=== PATIENT | female | born 1985 | race American Indian/Alaskan Native ===

== ENCOUNTER 2016-04-24 10:57 | Emergency (ER) | payer MEDICAID, OTHER ==
[2016-04-24 11:51] VITALS: BP 114/76
--- NOTE | 2016-04-24 12:32 | Emergency Department Report ---
- General Chief Complaint: Upper Respiratory Infection Stated Complaint: CHEST PAIN/HURTS WHEN COUGH/BODY ACHE Time Seen by Provider: 04/24/16 12:27 Source: patient Mode of arrival: Ambulatory Limitations: No Limitations - History of Present Illness MD Complaint: fever, cough, rhinorrhea, nasal congestion -: Gradual, days(s) Severity: severe Severity scale (0 -10): 7 Quality: sharp Consistency: constant Improves With: nothing Associated Symptoms: denies other symptoms, fever, chills, myalgias, cough. denies: stiff neck - Related Data Previous Rx's Medication Instructions Recorded Last Taken Type Azithromycin [Zithromax Z-KATHRYN] 250 mg PO QDAY #6 tablet 04/24/16 Unknown Rx Promethazine /Codeine 5 ml PO Q6H PRN #60 udc 04/24/16 Unknown Rx [Phenergan/Codeine 6.25-10 mg/5Ml] predniSONE [Deltasone] 50 mg PO QDAY #5 tablet 04/24/16 Unknown Rx Allergies Allergy/AdvReac Type Severity Reaction Status Date / Time No Known Allergies Allergy Verified 04/24/16 11:51 ED Review of Systems ROS: Stated complaint: CHEST PAIN/HURTS WHEN COUGH/BODY ACHE Other details as noted in HPI Constitutional: fever, malaise. denies: chills Eyes: denies: eye pain, eye discharge, vision change ENT: denies: ear pain, throat pain Respiratory: cough. denies: orthopnea, shortness of breath, SOB with exertion, SOB at rest, stridor, wheezing Cardiovascular: denies: chest pain, palpitations Endocrine: no symptoms reported Gastrointestinal: denies: abdominal pain, nausea, diarrhea Genitourinary: denies: urgency, dysuria, discharge Musculoskeletal: denies: back pain, joint swelling, arthralgia Skin: denies: rash, lesions Neurological: denies: headache, weakness, paresthesias Psychiatric: denies: anxiety, depression Hematological/Lymphatic: denies: easy bleeding, easy bruising ED Past Medical Hx - Past Medical History Previous Medical History?: No - Surgical History Additional Surgical History: CERVICAL BIOPSY - Social History Smoking Status: Never Smoker Substance Use Type: None - Medications Home Medications: Home Medications Medication Instructions Recorded Confirmed Last Taken Type Azithromycin [Zithromax Z-KATHRYN] 250 mg PO QDAY #6 tablet 04/24/16 Unknown Rx Promethazine /Codeine 5 ml PO Q6H PRN #60 udc 04/24/16 Unknown Rx [Phenergan/Codeine 6.25-10 mg/5Ml] predniSONE [Deltasone] 50 mg PO QDAY #5 tablet 04/24/16 Unknown Rx ED Physical Exam - General Limitations: No Limitations General appearance: alert, in no apparent distress - Head Head exam: Present: atraumatic, normocephalic - Eye Eye exam: Present: normal appearance, PERRL, EOMI - ENT ENT exam: Present: mucous membranes moist - Neck Neck exam: Present: normal inspection. Absent: tenderness, meningismus - Respiratory Respiratory exam: Present: normal lung sounds bilaterally. Absent: respiratory distress, wheezes, rales, rhonchi, stridor, chest wall tenderness, accessory muscle use, decreased breath sounds, prolonged expiratory - Cardiovascular Cardiovascular Exam: Present: regular rate. Absent: systolic murmur, diastolic murmur, rubs, gallop - GI/Abdominal GI/Abdominal exam: Present: soft, normal bowel sounds - Extremities Exam Extremities exam: Present: normal inspection - Back Exam Back exam: Present: normal inspection - Neurological Exam Neurological exam: Present: alert, oriented X3 - Psychiatric Psychiatric exam: Present: normal affect, normal mood - Skin Skin exam: Present: warm, dry, intact, normal color. Absent: rash ED Course Vital Signs 04/24/16 11:40 Temperature 98.8 F Pulse Rate 90 Respiratory 19 Rate Blood Pressure 114/76 O2 Sat by Pulse 100 Oximetry Critical care attestation.: If time is entered above; I have spent that time in minutes in the direct care of this critically ill patient, excluding procedure time. ED Disposition Clinical Impression: URI (upper respiratory infection) Disposition: DISCHARGED TO HOME OR SELFCARE Is pt being admited?: No Condition: Stable Instructions: Upper Respiratory Infection (ED) Prescriptions: Azithromycin [Zithromax Z-KATHRYN] 250 mg PO QDAY #6 tablet predniSONE [Deltasone] 50 mg PO QDAY #5 tablet Promethazine /Codeine [Phenergan/Codeine 6.25-10 mg/5Ml] 5 ml PO Q6H PRN #60 udc PRN Reason: cough Referrals: PRIMARY CARE, [Primary Care Provider] - 3-5 Days RAVIN HENSON MD [Referring] - 3-5 Days Forms: Work/School Release Form(ED)
== END 2016-04-24 13:13 | disposition home or self-care (01) ==
LOC: ED 10:57
DX: J06.9 Acute upper respiratory infection, unspecified (principal)
CPT/HCPCS: 99282

== ENCOUNTER 2018-06-09 08:23 | Emergency (ER) | payer MEDICAID ==
--- NOTE | 2018-06-09 09:01 | Emergency Department Report ---
ED Abdominal Pain HPI - General Chief Complaint: Abdominal Pain Stated Complaint: ABD PAIN Time Seen by Provider: 06/09/18 08:55 Source: patient Mode of arrival: Ambulatory Limitations: No Limitations - History of Present Illness Initial Comments: Patient is 32 years old female with no significant past medical history. Patient presented to the ER complaining of left upper quadrant, left flank and left lower quadrant pain. Patient stated that pain started last night and it's way, from sleep. Patient stated that she is just came out of her contraceptive pill so her period is irregular now. Patient denied any fever, nausea or vomiting. No diarrhea. MD Complaint: abdominal pain, flank pain -: Last night Location: LLQ, L flank Radiation: none Migration to: no migration Severity scale (0 -10): 8 Quality: cramping - Related Data Previous Rx's Medication Instructions Recorded Last Taken Type Azithromycin [Zithromax Z-KATHRYN] 250 mg PO QDAY #6 tablet 04/24/16 Unknown Rx Promethazine /Codeine 5 ml PO Q6H PRN #60 udc 04/24/16 Unknown Rx [Phenergan/Codeine 6.25-10 mg/5Ml] predniSONE [Deltasone] 50 mg PO QDAY #5 tablet 04/24/16 Unknown Rx Allergies Allergy/AdvReac Type Severity Reaction Status Date / Time No Known Allergies Allergy Verified 04/24/16 11:51 ED Review of Systems ROS: Stated complaint: ABD PAIN Other details as noted in HPI Comment: All other systems reviewed and negative Constitutional: denies: chills, fever Respiratory: denies: cough, orthopnea, shortness of breath, SOB with exertion, SOB at rest, wheezing Cardiovascular: denies: chest pain, palpitations, dyspnea on exertion Gastrointestinal: abdominal pain. denies: nausea, vomiting, diarrhea, constipation, hematemesis, melena, hematochezia Genitourinary: abnormal menses. denies: urgency, dysuria Neurological: denies: headache, weakness, numbness, paresthesias, confusion ED Past Medical Hx - Past Medical History Previous Medical History?: No - Surgical History Past Surgical History?: Yes Additional Surgical History: CERVICAL BIOPSY - Social History Smoking Status: Never Smoker Substance Use Type: None - Medications Home Medications: Home Medications Medication Instructions Recorded Confirmed Last Taken Type Azithromycin [Zithromax Z-KATHRYN] 250 mg PO QDAY #6 tablet 04/24/16 Unknown Rx Promethazine /Codeine 5 ml PO Q6H PRN #60 udc 04/24/16 Unknown Rx [Phenergan/Codeine 6.25-10 mg/5Ml] predniSONE [Deltasone] 50 mg PO QDAY #5 tablet 04/24/16 Unknown Rx ED Physical Exam - General Limitations: No Limitations General appearance: alert, in no apparent distress - Head Head exam: Present: atraumatic, normocephalic, normal inspection - Eye Eye exam: Present: normal appearance, PERRL - ENT ENT exam: Present: normal exam, normal orophraynx, mucous membranes moist - Neck Neck exam: Present: normal inspection, full ROM. Absent: tenderness, meningismus, lymphadenopathy, thyromegaly - Respiratory Respiratory exam: Present: normal lung sounds bilaterally - Cardiovascular Cardiovascular Exam: Present: regular rate, normal rhythm, normal heart sounds - GI/Abdominal GI/Abdominal exam: Present: soft, tenderness (left upper quadrant and left lower quadrant), normal bowel sounds. Absent: distended, guarding, rebound, rigid, organomegaly, mass, bruit, pulsatile mass - Extremities Exam Extremities exam: Present: normal inspection, full ROM, normal capillary refill - Back Exam Back exam: Present: normal inspection, full ROM. Absent: tenderness, CVA tenderness (R), CVA tenderness (L), muscle spasm, paraspinal tenderness, vertebral tenderness - Neurological Exam Neurological exam: Present: alert, oriented X3, CN II-XII intact, normal gait - Skin Skin exam: Present: warm, intact, normal color ED Course Vital Signs 06/09/18 08:29 Temperature 98 F Pulse Rate 83 Respiratory 16 Rate Blood Pressure 124/73 O2 Sat by Pulse 98 Oximetry ED Medical Decision Making - Lab Data Result diagrams: 06/09/18 09:05 06/09/18 09:33 - Radiology Data Radiology results: report reviewed CT abdomen and pelvis showed a 2.5 cm right ovarian cyst. No other acute abnormalities. - Medical Decision Making Patient is 32 years old female with no significant past medical history. Patient presented to the ER complaining of left upper quadrant, left flank and left lower quadrant pain. Patient stated that pain started last night and it's way, from sleep. Patient stated that she is just came out of her contraceptive pill so her period is irregular now. Patient denied any fever, nausea or vomiting. No diarrhea. Labs reviewed and is negative for acute finding except for UTI. CT abdomen and pelvis showed a right ovarian cyst. Patient received Toradol in the ER the patient advised to follow-up with her numberer and wirer in the next 2-3 days and to return to the ER if symptoms are not improved. Critical care attestation.: If time is entered above; I have spent that time in minutes in the direct care of this critically ill patient, excluding procedure time. ED Disposition Clinical Impression: Abdominal pain, UTI (urinary tract infection), Ovarian cyst Disposition: - TO HOME OR SELFCARE Is pt being admited?: No Condition: Stable Instructions: Abdominal Pain (ED), Urinary Tract Infection in Women (ED), Ovarian Cyst (ED) Referrals: [facility] [Other] - 3-5 Days
[2018-06-09 09:24] LABS: Basophils % (Auto) 0.5 % (0.0-1.8); Eosinophils # (Auto) 0.1 K/mm3 (0.0-0.4); Hematocrit 38.4 % (30.3-42.9); Hemoglobin 12.9 gm/dl (10.1-14.3); Lymphocytes # (Auto) 1.7 K/mm3 (1.2-5.4); Lymphocytes % (Auto) 27.2 % (13.4-35.0); Mean Corpuscular HGB Conc 34 % (30-34); Mean Corpuscular Volume 97 fl (79-97); Monocytes # (Auto) 0.5 K/mm3 (0.0-0.8); Monocytes % (Auto) 8.5 % (0.0-7.3); Platelet Count 214 K/mm3 (140-440); Red Blood Count 3.97 M/mm3 (3.65-5.03); Red Cell Distribution Width 13.1 % (13.2-15.2)
[2018-06-09 09:26] LABS: Bacteria,Urine 1+ /HPF (Negative); Bilirubin,Urine NEG (Negative); Blood,Urine NEG (Negative); Color,Urine Yellow (Yellow); Mucus,Urine FEW /HPF; Protein,Urine <15 mg/dL mg/dL (Negative); Urobilinogen,Urine < 2.0 mg/dL (<2.0)
[2018-06-09 09:34] LABS: HCG Qualitative,Urine Negative (Negative)
[2018-06-09 10:07] LABS: Alanine Aminotransferase 65 units/L (7-56); Albumin 3.9 g/dL (3.9-5); BUN/Creatinine Ratio 12; Blood Urea Nitrogen 7 mg/dL (7-17); Calcium 8.9 mg/dL (8.4-10.2); Hemolysis Index 5
--- NOTE | 2018-06-09 11:23 | Cat Scan Report ---
CT ABDOMEN PELVIS WITHOUT CONTRAST: HISTORY: abdominal pain. COMPARISON: none. TECHNIQUE: Helical CT in 1.25mm intervals without IV contrast. Sagittal and coronal reconstructions. FINDINGS: Lung bases: Normal. Liver: Normal. Biliary system: Normal. Pancreas: Normal. Spleen: Normal. Kidneys/ureters/bladder: Normal. Adrenal glands: Normal. Aorta: Normal. Intestines: Normal. Appendix: Normal. Pelvic viscera: A 2.5 x 2.9 cm right adnexal cyst is identified. The uterus and left adnexa are unremarkable. Ascites: None. Adenopathy: None. Musculoskeletal: Intact. IMPRESSION: 2.5 x 2.9 cm right ovarian cyst. No acute inflammatory process is identified.
[2018-06-09] MEDS ORDERED: TORADOL IM ONE (12:10)
[2018-06-09] MEDS ORDERED: TORADOL ONE (12:12)
[2018-06-09 12:32] VITALS: BP 122/78
== END 2018-06-09 12:23 | disposition home or self-care (01) ==
LOC: ED 08:23
DX: N39.0 Urinary tract infection, site not specified (principal); N83.201 Unspecified ovarian cyst, right side
CPT/HCPCS: 36415; 74176; 80053; 81001; 81025; 83690; 85025; 96372; 99284; J1885

== ENCOUNTER 2019-04-23 22:33 | Emergency (ER) | payer MEDICAID ==
[2019-04-23 22:44] VITALS: BP 143/81
[2019-04-24] MEDS ORDERED: FAMOTIDINE 20 MG/2 ML INJ IV ONE (00:29)
[2019-04-24] MEDS ORDERED: SODIUM CHLORIDE 0.9% 1000 ML 1,000 ML IV ONE ×2 (00:29→01:37)
[2019-04-24] MEDS ORDERED: METOCLOPRAMIDE 10 MG/2 ML INJ IV ONE (00:29)
[2019-04-24] MEDS ORDERED: diphenhydrAMINE 50 MG/ML VIAL IV ONE (00:29)
[2019-04-24 00:50] LABS: Basophils # (Auto) 0.1 K/mm3 (0.0-0.1); Basophils % (Auto) 0.5 % (0.0-1.8); Eosinophils # (Auto) 0.1 K/mm3 (0.0-0.4); Hematocrit 37.3 % (30.3-42.9); Hemoglobin 12.5 gm/dl (10.1-14.3); Lymphocytes # (Auto) 2.3 K/mm3 (1.2-5.4); Lymphocytes % (Auto) 20.1 % (13.4-35.0); Mean Corpuscular HGB Conc 33 % (30-34); Mean Corpuscular Volume 98 fl (79-97); Monocytes % (Auto) 8.7 % (0.0-7.3); Platelet Count 285 K/mm3 (140-440); Red Blood Count 3.83 M/mm3 (3.65-5.03); Red Cell Distribution Width 12.9 % (13.2-15.2)
[2019-04-24 01:14] LABS: Alanine Aminotransferase 22 units/L (7-56); Albumin 4.1 g/dL (3.9-5); BUN/Creatinine Ratio 13; Blood Urea Nitrogen 8 mg/dL (7-17); Calcium 9.3 mg/dL (8.4-10.2); Hemolysis Index 4
[2019-04-24] MEDS ORDERED: ACETAMINOPHEN 500 MG TAB PO ONE (01:14)
--- NOTE | 2019-04-24 01:20 | Emergency Department Report ---
ED N/V/D HPI - General Chief complaint: Nausea/Vomiting/Diarrhea Stated complaint: 5WKS W/NAUSEA VOMITING Source: patient Mode of arrival: Ambulatory Limitations: No Limitations - History of Present Illness Initial comments: Patient is a A0 33-year-old -[place] female with no past medical history and is approximately 5 weeks' gestation presents to the ED with complaint of acute onset persistent intractable nausea and vomiting for the last 24 hours, with epigastric and diffuse low abdominal pain for the last 2 days. Patient states that she has not been able to keep anything down since the onset of these symptoms in the last 12 hours. Patient denies dyspnea, fever, chills, dizziness, vaginal bleeding, cough, diarrhea, dysuria, urinary frequency and urgency, vaginal discharge, chest pain, headache, or syncope. MD complaint: nausea, vomiting, abdominal pain -: Sudden, hour(s) (24) Description of Vomiting: food contents, watery Associated Abdominal Pain: Yes (pelvic and epigastric pain) Location: epigastric Radiation: none Severity: severe Pain Scale: 7 Quality: cramping Consistency: intermittent Worsens with: vomiting Context: other (5 weeks gestation) Associated Symptoms: denies other symptoms, myalgias, loss of appetite, nausea/vomiting. denies: chest pain, cough, diaphoresis, fever/chills, headaches, malaise, rash, dysuria, shortness of breath, syncope, weakness - Related Data Previous Rx's Medication Instructions Recorded Last Taken Type Azithromycin [Zithromax Z-KATHRYN] 250 mg PO QDAY #6 tablet 04/24/16 Unknown Rx Promethazine /Codeine 5 ml PO Q6H PRN #60 udc 04/24/16 Unknown Rx [Phenergan/Codeine 6.25-10 mg/5Ml] predniSONE [Deltasone] 50 mg PO QDAY #5 tablet 04/24/16 Unknown Rx Naproxen [Naprosyn] 500 mg PO BID #14 tablet 06/09/18 Unknown Rx Nitrofurantoin [place]/M-Cryst 100 mg PO Q12HR #14 capsule 06/09/18 Unknown Rx [Macrobid CAP] Acetaminophen [Mapap] 500 mg PO Q6H PRN #30 tablet 04/24/19 Unknown Rx Famotidine [Pepcid] 20 mg PO Q12H #30 tablet 04/24/19 Unknown Rx Promethazine [Phenergan] 25 mg PO Q6HR PRN #30 tab 04/24/19 Unknown Rx Promethazine [Phenergan] 25 mg [place] Q6HR PRN #15 supp.rect 04/24/19 Unknown Rx cephALEXin [Keflex] 500 mg PO Q8HR #30 cap 04/24/19 Unknown Rx Allergies Allergy/AdvReac Type Severity Reaction Status Date / Time No Known Allergies Allergy Verified 04/24/16 11:51 ED Review of Systems ROS: Stated complaint: 5WKS W/NAUSEA VOMITING Other details as noted in HPI Constitutional: denies: chills, fever Eyes: denies: eye pain, eye discharge, vision change ENT: denies: ear pain, throat pain Respiratory: denies: cough, shortness of breath, wheezing Cardiovascular: denies: chest pain, palpitations Endocrine: no symptoms reported Gastrointestinal: abdominal pain, nausea, vomiting. denies: diarrhea Genitourinary: denies: urgency, dysuria, discharge Musculoskeletal: denies: back pain, joint swelling, arthralgia Skin: denies: rash, lesions Neurological: denies: headache, weakness, paresthesias Psychiatric: denies: anxiety, depression Hematological/Lymphatic: denies: easy bleeding, easy bruising ED Past Medical Hx - Past Medical History Previous Medical History?: No - Surgical History Past Surgical History?: Yes Additional Surgical History: CERVICAL BIOPSY - Social History Smoking Status: Never Smoker Substance Use Type: None - Medications Home Medications: Home Medications Medication Instructions Recorded Confirmed Last Taken Type Azithromycin [Zithromax Z-KATHRYN] 250 mg PO QDAY #6 tablet 04/24/16 Unknown Rx Promethazine /Codeine 5 ml PO Q6H PRN #60 udc 04/24/16 Unknown Rx [Phenergan/Codeine 6.25-10 mg/5Ml] predniSONE [Deltasone] 50 mg PO QDAY #5 tablet 04/24/16 Unknown Rx Naproxen [Naprosyn] 500 mg PO BID #14 tablet 06/09/18 Unknown Rx Nitrofurantoin [place]/M-Cryst 100 mg PO Q12HR #14 capsule 06/09/18 Unknown Rx [Macrobid CAP] Acetaminophen [Mapap] 500 mg PO Q6H PRN #30 tablet 04/24/19 Unknown Rx Famotidine [Pepcid] 20 mg PO Q12H #30 tablet 04/24/19 Unknown Rx Promethazine [Phenergan] 25 mg PO Q6HR PRN #30 tab 04/24/19 Unknown Rx Promethazine [Phenergan] 25 mg [place] Q6HR PRN #15 supp.rect 04/24/19 Unknown Rx cephALEXin [Keflex] 500 mg PO Q8HR #30 cap 04/24/19 Unknown Rx ED Physical Exam - General Limitations: No Limitations General appearance: alert, in no apparent distress - Head Head exam: Present: atraumatic, normocephalic, normal inspection - Eye Eye exam: Present: normal appearance, PERRL, EOMI Pupils: Present: normal accommodation - ENT ENT exam: Present: normal exam, normal orophraynx, mucous membranes moist, TM's normal bilaterally, normal external ear exam - Neck Neck exam: Present: normal inspection, full ROM. Absent: tenderness, meningismus, lymphadenopathy, thyromegaly - Respiratory Respiratory exam: Present: normal lung sounds bilaterally. Absent: respiratory distress, wheezes, rales, rhonchi, chest wall tenderness, decreased breath sounds - Cardiovascular Cardiovascular Exam: Present: regular rate, normal rhythm, normal heart sounds. Absent: systolic murmur, diastolic murmur, rubs, gallop - GI/Abdominal GI/Abdominal exam: Present: soft, tenderness (mildly tender epigastric and suprapubic tenderness), normal bowel sounds - Bi-manual exam: Present: other (Pelvic exam deferred) - Extremities Exam Extremities exam: Present: normal inspection, full ROM, normal capillary refill - Back Exam Back exam: Present: normal inspection, full ROM. Absent: tenderness, CVA tenderness (R), CVA tenderness (L), muscle spasm, paraspinal tenderness, vertebral tenderness - Neurological Exam Neurological exam: Present: alert, oriented X3, CN II-XII intact, normal gait, reflexes normal - Psychiatric Psychiatric exam: Present: normal affect, normal mood - Skin Skin exam: Present: warm, dry, intact, normal color. Absent: rash ED Course Vital Signs 04/23/19 04/24/19 22:42 01:36 Temperature 98.6 F Pulse Rate 85 Respiratory 14 18 Rate Blood Pressure 143/81 O2 Sat by Pulse 100 Oximetry ED Medical Decision Making - Lab Data Result diagrams: 04/24/19 00:34 04/24/19 00:34 - Radiology Data Radiology results: report reviewed, image reviewed Findings [facility] [address] [place] [address] Ultrasound Report Signed Patient: MAGDI GILBERT MR#: [id number] : 1985 Acct:[id number] Age/Sex: 33 / F ADM Date: 04/23/19 Loc: ED Attending Dr: Ordering Physician: ISIDRO GERMAN Date of Service: 04/24/19 Procedure(s): US OB <= 14 weeks fetus Accession Number(s): [id number] cc: ISIDRO GERMAN OB Ultrasound HISTORY: Pelvic pain - . TECHNIQUE: Grayscale and color imaging performed. COMPARISON: None FINDINGS: Uterus measures 11.6 x 4.6 x 4.8 cm with small cystic structure in the uterine fundal region measuring 1 cm in mean diameter which would correlate with an EGA of 5 weeks and 5 days. No yolk sac or cardiac activity is identified. No pole. Ovaries are unremarkable except for a likely functional cyst in the left ovary measuring 1.9 cm. No appreciable pelvic free fluid. IMPRESSION: Cystic endometrial structure as above could represent an early gestation. Correlate with beta hCG and if indicated follow-up pelvic ultrasound. Signer Name: Damian Joseph MD Signed: 04/24/2019 2:44 AM Workstation Name: [id number] Transcribed By: PATTI Dictated By: Damian Joseph MD Electronically Authenticated By: Damian Joseph MD Signed Date/Time: 04/24/19243 DD/ 024 - Medical Decision Making This is a 33-year-old A0 female who presented to the ED with acute onset persistent intractable nausea and vomiting with epigastric and lower abdominal pain. In the ED, patient is alert and oriented 3 and is not in distress. Lab test results were reviewed and shows acute leukocytosis of 11,400 and a cheesy Quant of 5987. Patient was treated for nausea and vomiting with antiemetics, also treated for pain or Tylenol, and given 2 L normal saline IV bolus. Urinalysis shows urinary tract infection. Patient was treated in the ED with Rocephin 1 g IV 1. On reevaluation, patient felt better, nausea and vomiting resolved with medications and patient was able to pass oral fluid challenge in the ED. Transvaginal ultrasound shows uterus that measures 11.6 x 4.6 x 4.8 cm with small cystic structure in the uterine fundal region measuring 1 cm in mean diameter which would correlate with an EGA of 5 weeks and 5 days. No yolk sac or cardiac activity is identified. No pole. Ovaries are unremarkable except for a likely functional cyst in the left ovary measuring 1.9 cm. No appreciable pelvic free fluid. Therefore the cystic endometrial structure as above could represent an early gestation. Correlate with beta hCG and if indicated follow-up pelvic ultrasound. On reevaluation, patient's pain is well controlled with medications. Nausea and vomiting has resolved and patient is hemodynamically stable. Patient was discharged home on antiemetics, antacids and pain medications and was advised to follow-up with TRANSFILL TECHNICIAN physician in 5-7 days for reevaluation. Patient was meanwhile advised to maintain a clear liquid diet for 12-24 hours and to drink a lot of fluids. Patient was also advised to return to the ED immediately if symptoms get worse. - Differential Diagnosis Ectopic ; UTI; Ovarian cyst; dehydration; GERD; Hyperemesis Critical care attestation.: If time is entered above; I have spent that time in minutes in the direct care of this critically ill patient, excluding procedure time. ED Disposition Clinical Impression: Hyperemesis gravidarum, Acute urinary tract infection Abdominal pain in Qualifiers: Trimester: first trimester Qualified Code(s): O26.891 - Other specified related conditions, first trimester Disposition: DC-01 TO HOME OR SELFCARE Is pt being admited?: No Does the pt Need Aspirin: No Condition: Stable Instructions: Urinary Tract Infection in Women (ED), Hyperemesis Gravidarum (ED), Abdominal Pain in (ED) Additional Instructions: Maintain a clear liquid diet for 12-24 hours, take medications with food, drink plenty of fluids and follow-up with your TRANSFILL TECHNICIAN physician in 3-5 days for reevaluation. Return to the ED immediately if symptoms get worse. Prescriptions: cephALEXin [Keflex] 500 mg PO Q8HR #30 cap Acetaminophen [Mapap] 500 mg PO Q6H PRN #30 tablet PRN Reason: Pain , Severe (7-10) Famotidine [Pepcid] 20 mg PO Q12H #30 tablet Promethazine [Phenergan] 25 mg PO Q6HR PRN #30 tab PRN Reason: Nausea Promethazine [Phenergan] 25 mg [place] Q6HR PRN #15 supp.rect PRN Reason: Nausea Referrals: CYNDI DE LA ROSA MD [Staff Physician] - 3-5 Days Time of Disposition: 03:25 Print Language: BELARUSIAN
--- NOTE | 2019-04-24 02:49 | Ultrasound Report ---
OB Ultrasound HISTORY: Pelvic pain - . TECHNIQUE: Grayscale and color imaging performed. COMPARISON: None FINDINGS: Uterus measures 11.6 x 4.6 x 4.8 cm with small cystic structure in the uterine fundal regio n measuring 1 cm in mean diameter which would correlate with an EGA of 5 weeks and 5 days. No yolk sa c or cardiac activity is identified. No pole. Ovaries are unremarkable except for a likely func tional cyst in the left ovary measuring 1.9 cm. No appreciable pelvic free fluid. IMPRESSION: Cystic endometrial structure as above could represent an early gestation. Correlate with beta hCG and if indicated follow-up pelvic ultrasound. Signer Name: Damian Joseph MD Signed: 04/24/2019 2:44 AM Workstation Name: [id number]
[2019-04-24 03:20] LABS: Bilirubin,Urine NEG (Negative); Blood,Urine NEG (Negative); Color,Urine Yellow (Yellow); Mucus,Urine 1+ /HPF; Protein,Urine <15 mg/dL mg/dL (Negative); Urobilinogen,Urine < 2.0 mg/dL (<2.0)
[2019-04-24] MEDS ORDERED: cefTRIAXone/NS 1 GM/50 ML 1 GM/50 ML BAG IV ONE (03:22)
== END 2019-04-24 03:40 | disposition home or self-care (01) ==
LOC: ED 22:33
DX: O21.0 Mild hyperemesis gravidarum (principal); O23.41 Unspecified infection of urinary tract in pregnancy, first trimester; O26.891 Other specified pregnancy related conditions, first trimester; R10.30 Lower abdominal pain, unspecified; Z3A.01 Less than 8 weeks gestation of pregnancy; Z79.899 Other long term (current) drug therapy
CPT/HCPCS: 36415; 76801; 80053; 81001; 83690; 84702; 84703; 85025; 87086; 96361; 96374; 96375; 99284; J1200; J2765; J7030